=== PATIENT | male | born 1960 | race Caucasian/White ===

== ENCOUNTER 2022-01-14 10:48 | Emergency (ER) | payer OTHER ==
[~2022-01-14] VITALS: Ht 180.3 cm; Wt 99.8 kg
--- NOTE | 2022-01-14 11:19 | NUR ---
PT SEEN AND EVALUATED BY DR URIBE, PRESCRIPTION FOR PAIN RENDERED . DISCHARGE INSTRUCTIONS GIVEN TO PT AND DAUGHTER .
[2022-01-14] MEDS ORDERED: HYDR-3972 PO (13:19)
== END 2022-01-15 10:32 | disposition home or self-care (01) ==
LOC: ER 10:48
DX: B02.9 Zoster without complications (principal); Z87.891 Personal history of nicotine dependence
CPT/HCPCS: A4663